=== PATIENT | female | born 1975 | race Caucasian/White ===

== ENCOUNTER → 2016-12-30 | Outpatient (CLI) | payer OTHER ==
--- NOTE | 2016-12-30 12:33 | RAD ---
Left foot, 3 views, 12/30/2016: History: Foot pain No fracture or dislocation is identified. There is a small inferior calcaneal spur. Subcutaneous edema is present. IMPRESSION: No acute bony abnormality is detected.
== END | disposition home or self-care (01) ==
LOC: DXRADRC 11:23
PROVIDERS: ATTEND Nurse Practitioner Family
DX: M79.671 Pain in right foot (principal)
CPT/HCPCS: 73630

== ENCOUNTER → 2018-08-10 | Outpatient (CLI) | payer OTHER ==
--- NOTE | 2018-08-10 11:24 | RAD ---
ROOPA, 08/10/2018: HISTORY: Abdominal pain Gas is present in large and small bowel in a nonspecific pattern. There is a moderate amount stool in the right colon. No free air seen in the abdomen. There is no evidence organomegaly or abnormal abdominal calcification. Surgical clips are present in the right upper quadrant. IMPRESSION: No acute abdominal abnormality is detected. Electronically signed by: Dar Doyle MD (08/10/2018 11:21 AM) [facility]
== END | disposition home or self-care (01) ==
LOC: PMG 10:18
PROVIDERS: ATTEND Physician Assistant
DX: R10.10 Upper abdominal pain, unspecified (principal)
CPT/HCPCS: 74021

== ENCOUNTER 2021-04-11 19:09 | Emergency (ER) | payer OTHER ==
[~2021-04-11] VITALS: Ht 162.6 cm; Wt 81.3 kg
[2021-04-11 19:18] VITALS: BP 115/69
--- NOTE | 2021-04-11 19:23 | PHYS DOC ---
Past History Past Medical History: Cancer Past Medical History Chemotherapy General Adult EDM: Chief Complaint: FEVER HPI: HPI: ".. I ve got breast cancer... and on chemo therapy.. I started running a fever.. My doctor said to come in and get evaluated.. " Patient is a 46 year old female who presents with above hx of breast cancer in course two of chemotherapy with fever at home. Patient presents with a mild elevation temperature of 99.2 but very tachycardic. Last dose of chemo was 10 days ago. Patient has not had any radiation therapy as yet. Has possible pending cancer surgery after chemo treatments. Pt. following with Dr. Taurus Lawler- Oncology. [phone]. Discussions with , he requested baseline labs with cultures and x-rays. Concern that she may be leukopenic. Requested call back when labs are available. Patient denies any recent travel outside [facility] area. No specific ill contacts. Patient breast cancer found after self exam and biopsy. Cancer does have endocrine markers. Reports she has been compliant with meds as per her oncologist. Has follow-up with [facility] as a primary care in the past. Patient denies other health issues. Patient is accompanied with her . Review of Systems: Review of Systems: Constitutional: Patient complaining of fever or chills Eyes: Denies change in visual acuity HENT: Denies nasal congestion or sore throat Respiratory: Denies cough or shortness of breath Cardiovascular: Complains of tachycardia GI: Denies abdominal pain, nausea, vomiting, bloody stools or diarrhea : Denies dysuria Musculoskeletal: Denies back pain or joint pain Integument: Denies rash Neurologic: Denies headache, focal weakness or sensory changes Endocrine: Denies polyuria or polydipsia Lymphatic: Denies swollen glands Psychiatric: Denies depression or anxiety Family History: Family History: Noncontributory to presentation Current Medications: Current Meds: See nursing for home meds Allergies: Allergies: Allergies Coded Allergies Type Severity Reaction Last Updated Verified No Known Drug Allergies 08/10/15 No Physical Exam: PE: Constitutional: Moderate acute distress, non-toxic appearance. [] HENT: Normocephalic, atraumatic, bilateral external ears normal, oropharynx dry, no oral exudates, nose normal. Hair loss Eyes: PERRLA, EOMI, conjunctiva normal, no discharge. [] Neck: Normal range of motion, no tenderness, supple, no stridor. [] Cardiovascular: Tachycardia heart rate regular rhythm, no murmur []. The bedside monitor shows a sinus tachycardia 140s Lungs & Thorax: Bilateral breath sounds equal apex with few basilar crackles on the right that clear with deep breaths on auscultation []. Port site on right chest wall. Biopsy left breast side Abdomen: Bowel sounds decreased, soft, no tenderness, no masses, no pulsatile masses. [] Skin: Warm, dry, no erythema, no rash. [] Back: No tenderness, no CVA tenderness. [] Extremities: No tenderness, no cyanosis, no clubbing, ROM intact, no edema. No cording noted Neurologic: Alert and oriented X 3, moves all extremities on request, does have distal sensory, no focal deficits noted. [] Psychologic: Affect anxious, judgement normal, mood normal. [] EKG: EKG: My interpretation of EKG shows a sinus tachycardia at 109 bpm. Bimodal atrial waves on the left. Does have some left axis changes. No findings of acute STEMI with contralateral changes. Would consider it as an abnormal EKG because of tachycardia. Time of EKG is 1954 hrs. Radiology/Procedures: Radiology/Procedures: [][place] [address] IMAGING REPORT Signed PATIENT: POPPY KRUSE ACCOUNT: [id number] : 05/08/1986 LOCATION: ER AGE: 34 SEX: F EXAM STATUS: REG ER ORD. PHYSICIAN: SHREYA AMBROSIO MD REASON: dyspnea, cough with productive sputum PROCEDURE: CHEST PA & LATERAL XR CHEST 2V CLINICAL INDICATIONS: Reason: dyspnea, cough with productive sputum / Spl. Instructions: / History: COMPARISON: None available. Findings: No acute lung infiltrate or pleural effusion or pulmonary edema or lung mass or pneumothorax is seen. The heart size, pulmonary vasculature, mediastinum and both nara are unremarkable. The osseous structures appear intact. IMPRESSION: No acute radiographic abnormality is seen. Electronically signed by: Christiano Ross MD (04/11/2021 8:03 PM) [id number] DICTATED AND SIGNED BY: CHRISTIANO ROSS MD DATE: 04/11/212002 CC: SHREYA AMBROSIO MD; DES CARDENAS ~MTH0 0 Heart Score: C/O Chest Pain: No HEART Score for Chest Pain: HEART Score for Chest Pain Response (Comments) Value History Slighlty/Non-Suspicious 0 Age >45 - < 65 1 Risk Factors 1 or 2 Risk Factors 1 Troponin < Normal Limit 0 Total 2 Risk Factors: Risk Factors: DM, Current or recent (<one month) smoker, HTN, HLP, family history of CAD, obesity. Risk Scores: Score 0 - 3: 2.5% MACE over next 6 weeks - Discharge Home Score 4 - 6: 20.3% MACE over next 6 weeks - Admit for Clinical Observation Score 7 - 10: 72.7% MACE over next 6 weeks - Early Invasive Strategies Course & Med Decision Making: Course & Med Decision Making Pertinent Labs and Imaging studies reviewed. (See chart for details) Patient received a liter of fluids and antibiotics. Patient will be discharged on Cipro 500 mg twice a day x 7 days. After completing the Cipro take Diflucan 100 mg x 3 days. Follow-up urine and blood cultures. Return if any concerns. Push fluids. Keep follow-up of oncology. Keep follow-up with primary care. Monitor heart rate and blood pressure. Keep a record of these readings does show to her oncologist on follow-up. Call for an earlier appointment in the morning. Impression: 1. History of breast cancer 2. Currently on chemotherapy for the breast cancer- 3. History of fever and chills 4. Tachycardia 5. Mild anemia hemoglobin 11.1 6. Mild hypokalemia 3.4 7 mild elevation creatinine 1.4 8. Elevated CRP 75.8 9. UTI-> 40 WBC's 10.Mild Dehydration [] Dragon Disclaimer: Dragon Disclaimer: This electronic medical record was generated, in whole or in part, using a voice recognition dictation system. Departure Departure: Referrals: JOVITA YA (PCP) Scripts Fluconazole (DIFLUCAN) 100 Mg Tablet 100 MG PO DAILY for post antibiotic for 3 Days, #3 TAB Prov: SHREYA AMBROSIO MD 04/11/21 Ciprofloxacin Hcl (CIPROFLOXACIN HCL) 500 Mg Tablet 500 MG PO twice a day for UTI for 7 Days, TAB Prov: SHREYA AMBROSIO MD 04/11/21 [place] Disclaimer This chart was dictated in whole or in part using Voice Recognition software in a busy, high-work load, and often noisy Emergency Department environment. It may contain unintended and wholly unrecognized errors or omissions. SHREYA AMBROSIO MD Apr 11, 2021 19:23
[2021-04-11] MEDS ORDERED: ONDANSETRON ODT 4 MG TAB.RAPDIS PO ONE (19:45)
[2021-04-11] MEDS: IV RINGERS SOLUTION,LACTATED 1,000 ML IV SCH ×2 (19:45→20:14)
--- NOTE | 2021-04-11 20:18 | RAD ---
XR CHEST 2V CLINICAL INDICATIONS: Reason: Chest pain COMPARISON: June 03, 2013. Findings: There is mild elevation right hemidiaphragm with associated linear atelectasis of the right lung base. Mild linear atelectasis of left lung base is seen. These findings are new. Right IJ Port- A-Cath tip is seen within the lower SVC at the junction with right atrium. No lung consolidation or p leural effusion or pulmonary edema or lung mass or pneumothorax is seen. The heart size, pulmonary v asculature, mediastinum and both nara are unremarkable. The osseous structures appear intact. IMPRESSION: Bibasilar linear atelectasis. New elevation of the the right hemidiaphragm. Electronically signed by: Orestes Ross MD (04/11/2021 8:16 PM) [id number]
[2021-04-11 20:26] LABS: BILIRUBIN,URINE NEG (NEG); CLARITY,URINE HAZY; COLOR,URINE YELLOW; GLUCOSE,URINE NEG (NEG)
[2021-04-11 20:27] LABS: BACTERIA,URINE MOD /HPF (0-FEW); NITRITE,URINE NEG (NEG); SQUAMOUS EPITHELIAL CELL,UR MANY /LPF; UROBILINOGEN,URINE 0.2 mg/dL (0.2 mg/dL); WBC,URINE >40 /HPF (0-4)
[2021-04-11 20:35] LABS: BASO % 0 % (0-3); EOS % 0 % (0-3); HEMATOCRIT 32.9 % (36.0-47.0); HEMOGLOBIN 11.1 g/dL (12.0-15.5); LYMPH # 1.4 x10^3/uL (1.0-4.8); LYMPH % 15 % (24-48); MEAN CORPUSCULAR HEMOGLOBIN 29 pg (25-35); MEAN CORPUSCULAR HGB CONC 34 g/dL (31-37); MEAN CORPUSCULAR VOLUME 86 fL (79-100); MONO # 0.5 x10^3/uL (0.0-1.1); MONO % 5 % (0-9); NEUT # 7.8 x10^3uL (1.8-7.7); NEUT % 80 % (31-73); PLATELET COUNT 193 x10^3/uL (140-400); RED BLOOD COUNT 3.81 x10^6/uL (3.50-5.40); RED CELL DISTRIBUTION WIDTH 14.8 % (11.5-14.5); WHITE BLOOD COUNT 9.7 x10^3/uL (4.0-11.0)
[2021-04-11 20:48] LABS: CREATININE 1.4 mg/dL (0.6-1.0); GFR 40.3; POTASSIUM 3.4 mmol/L (3.5-5.1)
--- NOTE | 2021-04-11 20:52 | EKG ---
[address] [address] Test Date: 2021-04-11 Test Time: 19:54:04 Pat Name: ASAD GREENFIELD Department: Room: Gender: F Classroom Coordinator: : 1975 Requested By: SHREYA AMBROSIO Order Number: [id number] Reading MD: Gerardo Rodriguez MD Measurements Intervals [place] Rate: 109 P: 52 MO: 146 QRS: -17 QRSD: 96 T: 9 QT: 308 QTc: 416 Interpretive Statements SINUS TACHYCARDIA Electronically Signed On 04-12-2021 8:46:26 CDT by Gerardo Rodriguez MD
[2021-04-11 21:00] LABS: ALBUMIN 3.2 g/dL (3.4-5.0); DIRECT BILIRUBIN 0.2 mg/dL (0.0-0.2); MAGNESIUM 1.7 mg/dL (1.8-2.4); TOTAL BILIRUBIN 0.4 mg/dL (0.2-1.0); TOTAL PROTEIN 6.8 g/dL (6.4-8.2)
[2021-04-11] MEDS ORDERED: CIPR500T2 PO (21:26)
[2021-04-11] MEDS ORDERED: FLUC100T7 PO (21:26)
[2021-04-11] MEDS ORDERED: IV NORMAL SALINE 100ML 100 ML ONE (21:49)
[2021-04-11] MEDS ORDERED: CEFEPIME HCL 2 GM VIAL IV ONE (21:49)
[2021-04-11] MEDS ORDERED: CIPROFLOXACIN HCL 500 MG TABLET PO ONE (22:00)
[2021-04-11] MEDS ORDERED: CEFEPIME HCL 2 GM in IV NORMAL SALINE 100ML 100 ML IV SCH (22:00)
== END 2021-04-11 23:55 | disposition home or self-care (01) ==
LOC: ER 19:09
DX: D64.9 Anemia, unspecified (principal); E87.6 Hypokalemia; R79.89 Other specified abnormal findings of blood chemistry; R79.82 Elevated C-reactive protein (CRP); N39.0 Urinary tract infection, site not specified; E86.0 Dehydration; R00.0 Tachycardia, unspecified; Z85.3 Personal history of malignant neoplasm of breast
CPT/HCPCS: 36415; 71046; 80048; 80076; 81001; 81025; 82550; 83605; 83690; 83735; 83880; 84443; 84484; 85025; 85379; 85610; 85730; 86140; 87040; 87086; 93005; 96361; 96365; 99285; J0692; J7120; Q0162

== ENCOUNTER → 2021-08-09 | Outpatient (CLI) | payer OTHER ==
[~2021-08-09] MED LIST: CIPR500T2 PO; FLUC100T7 PO; IOHEXOL 240 MG/ML 50ML VIAL. PO ONE; IOHEXOL 300 MG/ML 75 ML VIAL. IV ONE
--- NOTE | 2021-08-09 12:26 | RAD ---
EXAMINATION: CT ABDOMEN+PELVIS W CLINICAL HISTORY: RLQ PAIN, HERNIA? HX LUMPECTOMY LEFT BREAST MALIGNANCY - 6 CHEMO TX'S. TECHNIQUE: CT of the abdomen and pelvis was performed using standard technique, scanning from just ab ove the dome of the diaphragm to the symphysis pubis following administration of intravenous contrast . CT Dose Reduction Employed: One or more of the following individualized dose reduction techniques wer e utilized for this examination: 1. Automated exposure control 2. Adjustment of the mA and/or kV ac cording to patient size 3. Use of iterative reconstruction technique. COMPARISON: 08/10/2015 FINDINGS: Partially visualized central venous catheter, visualized heart otherwise unremarkable. Curvilinear khan bsegmental atelectasis and/or scarring in the right lung base. Small area of hypoattenuation in the hepatic parenchyma adjacent to the gallbladder fossa, nonspecifi c but likely related to focal steatosis. Cholecystectomy. Pancreas, spleen, and adrenal glands unrema rkable. Essentially unchanged 7 mm fat dense lesion in the mid to lower pole of the left kidney, compatible w ith an angiomyolipoma. Several additional subcentimeter hypoenhancing foci in the bilateral kidneys, too small adequately characterize but may represent cysts. Minimally filled urinary bladder suboptimally evaluated. Multilobular uterus with several hypoenhanci ng lesions measuring up to 4.8 cm, likely fibroids and more pronounced compared to the prior study. O varies unremarkable on limited evaluation. No bowel dilation or definite wall thickening. Appendix within normal limits. No abdominal aortic or iliac artery aneurysm. 1.3 x 8.2 x 4.1 cm (AP x TRV x CC) intermediate density along the midline supraumbilical abdominal wa ll, nonspecific but possibly related to interval postsurgical changes associated with ventral hernia repair. No evidence of recurrent ventral hernia. Partially visualized 1.6 cm multilocular of subcutan eous air in the left breast, possibly related to recent biopsy. No evidence of acute osseous abnormality. IMPRESSION: Nonspecific density along the anterior abdominal wall, possibly related to interval postsurgical [place] ges associated with ventral hernia repair. No evidence of recurrent ventral hernia. 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 Multiple additional nonacute findings as described. Electronically signed by: Dharmesh Glasgow DO (08/09/2021 12:24 PM) [facility]
== END ==
LOC: CT 09:42
PROVIDERS: ATTEND Nurse Practitioner Family
DX: D17.71 Benign lipomatous neoplasm of kidney (principal); Z90.49 Acquired absence of other specified parts of digestive tract
CPT/HCPCS: 74177; Q9966; Q9967